=== PATIENT | female | born 1985 | race Caucasian/White ===

== ENCOUNTER 2018-04-16 16:45 | Emergency (ER) | payer MEDICAID ==
[~2018-04-16] VITALS: Ht 165.1 cm; Wt 73.9 kg
[2018-04-16 17:09] VITALS: Ht 165.1 cm; Wt 73.9 kg
[2018-04-16 19:20] LABS: CALCIUM 8.9 mg/dL (8.5-10.1); CARBON DIOXIDE 25.8 mmol/L (21-32); CHLORIDE SERUM 104 mmol/L (98-107); CREATININE SERUM 0.7 mg/dL (0.6-1.0); GFR1 > 60 mL/min; GLUCOSE SERUM 89 mg/dL (74-106); POTASSIUM SERUM 3.7 mmol/L (3.5-5.1); SODIUM SERUM 138 mmol/L (136-145)
[2018-04-16 19:24] LABS: ALKALINE PHOSPHATASE 77 U/L (46-116); ALT/SGPT 29 U/L (14-59); AST/SGOT 21 U/L (15-37); BASOPHIL % 0.4 % (0-2); BILIRUBIN TOTAL 0.35 mg/dL (0.20-1.00); LIPASE 189 IU/L (73-393); PLATELET COUNT 213 x10^3mcL (130-400); RED CELL DISTRIBUTION WIDTH 12.9 % (11.5-14.5); TOTAL PROTEIN, SERUM 7.6 g/dL (6.4-8.2)
[2018-04-16 20:20] VITALS: BP 105/66
== END 2018-04-16 23:00 | disposition home or self-care (01) ==
LOC: ED 16:45
PROVIDERS: Emergency Medicine
DX: R10.30 Lower abdominal pain, unspecified (principal)
CPT/HCPCS: 87491; 87591; J0696; J1885

== ENCOUNTER 2018-06-19 17:56 | Emergency (ER) | payer MEDICAID ==
[~2018-06-19] VITALS: Ht 165.1 cm; Wt 73.9 kg
[2018-06-19 18:03] VITALS: Ht 165.1 cm; Wt 73.9 kg
[2018-06-19 19:41] LABS: BASOPHIL % 0.4 % (0-2); PLATELET COUNT 226 x10^3mcL (130-400); RED CELL DISTRIBUTION WIDTH 13.1 % (11.5-14.5)
[2018-06-19 20:03] LABS: ALBUMIN 3.8 g/dL (3.4-5.0); ALKALINE PHOSPHATASE 100 U/L (46-116); ALT/SGPT 65 U/L (14-59); AST/SGOT 22 U/L (15-37); BILIRUBIN TOTAL 0.3 mg/dL (0.20-1.00); CARBON DIOXIDE 26.3 mmol/L (21-32); CHLORIDE SERUM 103 mmol/L (98-107); CREATININE SERUM 0.6 mg/dL (0.6-1.0); GFR1 > 60 mL/min; GLUCOSE SERUM 93 mg/dL (74-106); LIPASE 172 IU/L (73-393); SODIUM SERUM 138 mmol/L (136-145); TOTAL PROTEIN, SERUM 7.3 g/dL (6.4-8.2)
[2018-06-19 20:12] LABS: CALCIUM 8.8 mg/dL (8.5-10.1)
[2018-06-19 21:35] LABS: microscopic required? YES; urine erythrocyte TRACE (NEGATIVE)
[2018-06-19 21:53] VITALS: BP 125/73
== END 2018-06-19 21:53 | disposition home or self-care (01) ==
LOC: ED 17:56
PROVIDERS: Emergency Medicine
DX: O20.0 Threatened abortion (principal); O46.8X1 Other antepartum hemorrhage, first trimester; O26.891 Other specified pregnancy related conditions, first trimester; Z3A.08 8 weeks gestation of pregnancy
CPT/HCPCS: 36415

== ENCOUNTER 2018-06-22 18:16 | Emergency (ER) | payer MEDICAID ==
[~2018-06-22] VITALS: Ht 165.1 cm; Wt 74.8 kg
[2018-06-22 18:45] VITALS: Ht 165.1 cm; Wt 74.8 kg
[2018-06-22 20:23] LABS: BASOPHIL % 0.5 % (0-2); PLATELET COUNT 246 x10^3mcL (130-400); RED CELL DISTRIBUTION WIDTH 13.3 % (11.5-14.5)
[2018-06-22 20:24] LABS: microscopic required? YES; urine erythrocyte 3+ (NEGATIVE)
[2018-06-22 22:37] VITALS: BP 114/72
== END 2018-06-22 22:37 | disposition home or self-care (01) ==
LOC: ED 18:16
PROVIDERS: Emergency Medicine
DX: O20.8 Other hemorrhage in early pregnancy (principal); Z3A.01 Less than 8 weeks gestation of pregnancy
CPT/HCPCS: 36415